=== PATIENT | female | born 1960 | race Caucasian/White ===

== ENCOUNTER 2017-09-28 13:10 | Emergency (ER) | payer MEDICARE, OTHER ==
[~2017-09-28] VITALS: Ht 172.7 cm; Wt 105.2 kg
[~2017-09-28 13:10] MED LIST: ALLEGRA ALLERG180 MG PO; ALOE VERA237 ML TOP; CALCIUM600 MG PO; CYMBALTA30 MG PO; CYMBALTA60 MG PO; INDERAL LA80 MG PO; LYRICA150 MG PO; LYRICA75 MG PO; MIRALAX119 GM PO; NORCO 5-325 TA1 EACH PO; PRAVASTATIN SOD10 MG PO; PROTONIX40 MG PO; SEROQUEL XR150 MG PO; SINEMET 25-1001 EACH PO; SYNTHROID137 MCG PO; TOPAMAX50 MG PO; VISTARIL50 MG PO; VITAMIN D5000 UNI1 PO
[2017-09-28] MEDS ORDERED: ZYRTEC10 MG PO (13:32)
[2017-09-28] MEDS ORDERED: ZITHROMAX250 MG PO (13:33)
[2017-09-28] MEDS ORDERED: MUCOSA400 MG PO (13:33)
[2017-09-28] MEDS ORDERED: BENZONATATE100 MG PO (13:33)
== END 2017-09-28 14:27 | disposition home or self-care (01) ==
LOC: ED 13:10
DX: T81.4XXA Infection following a procedure, initial encounter (principal); L02.415 Cutaneous abscess of right lower limb; I10 Essential (primary) hypertension; E03.9 Hypothyroidism, unspecified; F17.200 Nicotine dependence, unspecified, uncomplicated; Z88.8 Allergy status to other drugs, medicaments and biological substances; Z79.899 Other long term (current) drug therapy
CPT/HCPCS: 99282

== ENCOUNTER 2019-10-14 14:51 | Emergency (ER) | payer MEDICARE, OTHER ==
[~2019-10-14] VITALS: Ht 172.7 cm; Wt 103.0 kg
[~2019-10-14 14:51] MED LIST changes: +BENZONATATE100 MG PO; +MUCOSA400 MG PO; +ZITHROMAX250 MG PO; +ZYRTEC10 MG PO
--- NOTE | 2019-10-16 07:11 | PATH ---
[facility] [address] [place], [place] [address] Signed ORDERING PHYSICIAN: Jaya Lorenzana MD PATIENT NAME: SANTIAGO REBOLLEDO GENDER: Leny : 1960 SPECIMEN(S): MOLECULAR PATHOLOGY RESULTS: SARS-CoV-2 Not Detected ADDITIONAL NOTES.: The [place] Fusion SARS-CoV-2 Assay is a multiplex real-time PCR (RT-PCR) in vitro diagnostic test intended for the qualitative detection of RNA from SARS-CoV-2 from individuals who meet COVID-19 clinical and/or epidemiological criteria. In general, SARS-CoV-2 RNA can be detected during the acute phase of infection. Positive results indicate the presence of SARS-CoV-2 RNA. Clinical correlation with patient history and other diagnostic information is necessary to determine patient infection status. Positive results do not rule out bacterial infection or co-infection with other viruses. Negative results do not preclude SARS-CoV-2 infection and should not be used as the sole basis for patient management decisions. Negative results must be combined with other clinical observations, patient history, and epidemiological information. The [place] Fusion SARS-CoV-2 Assay is not yet approved or cleared by the [place] FDA. When there are no FDA-approved or cleared tests available, and other criteria are met, FDA can make tests available under an emergency access mechanism called an Emergency Use Authorization (EUA). The EUA for this test is supported by the [employer] Referee of Health and Human Service's (HHS's) declaration that circumstances exist to justify the emergency use of in vitro diagnostics for the detection and/or diagnosis of the virus that causes COVID-19. This EUA will remain in effect for the duration of the COVID-19 declaration justifying emergency of IVDs, unless it is terminated or revoked by FDA, after which the test may no longer be used. The [place] Fusion SARS-CoV-2 Assay is for use only under EUA in US laboratories certified under the Clinical Laboratory Improvement Amendments of 1988 (CLIA) to perform high complexity tests. [facility] is certified under CLIA to perform high complexity PATIENT NAME: SANTIAGO REBOLLEDO PATHOLOGY DATE OF : 62 REPORT #: [id number] PHYSICIAN: TAMMI DE PAZ PCP: JAYA LORENZANA MD REPORT IS CONFIDENTIAL AND NOT TO BE RELEASED WITHOUT AUTHORIZATION [facility] [address] [place] [id number] Signed clinical laboratory testing. PERFORMING LABORATORY.: Molecular testing was performed by [facility] [address] [place] [id number] (Technician Assistant: Pavan Huff D.O.; CLIA#: [id number]) Diagnostician: System Interface Pathologist Electronically Signed 10/16/2019 Copies: ~ PATIENT NAME: SANTIAGO REBOLLEDO PATHOLOGY DATE OF : 62 REPORT #: [id number] PHYSICIAN: TAMMI DE PAZ PCP: JAYA LORENZANA MD REPORT IS CONFIDENTIAL AND NOT TO BE RELEASED WITHOUT AUTHORIZATION
== END 2019-10-14 17:56 | disposition home or self-care (01) ==
LOC: ED 14:51
DX: R10.9 Unspecified abdominal pain (principal); I10 Essential (primary) hypertension; E03.9 Hypothyroidism, unspecified; F17.200 Nicotine dependence, unspecified, uncomplicated; Z88.7 Allergy status to serum and vaccine; Z79.899 Other long term (current) drug therapy
CPT/HCPCS: 80053; 81001; 83690; 83735; 85025; 96360; 99284-25; C9803; J7030

== ENCOUNTER 2022-07-29 13:29 | Emergency (ER) | payer MEDICARE, OTHER ==
[~2022-07-29] VITALS: Ht 172.7 cm; Wt 104.3 kg
--- NOTE | 2022-07-29 15:25 | EKG ---
[facility] [address] [place], [place] [address] Signed Normal sinus rhythm Normal ECG No previous ECGs available Confirmed by NICOLASA NIETO MD ([id number]) on 07/29/2022 3:25:27 PM Electronically Signed By: NICOLASA NIETO MD 07/29/22 1525 PATIENT NAME: SANTIAGO REBOLLEDO Electrocardiogram DATE OF : 62 PHYSICIAN: NICOLASA NIETO MD REPORT #: [id number] REPORT IS CONFIDENTIAL AND NOT TO BE RELEASED WITHOUT AUTHORIZATION
[2022-07-29] MEDS ORDERED: CYCLOBENZAPRINE10 MG PO (16:12)
[2022-07-29 16:25] VITALS: BP 131/73
== END 2022-07-29 16:26 | disposition home or self-care (01) ==
LOC: ED 13:29
DX: R07.89 Other chest pain (principal); I10 Essential (primary) hypertension; F17.200 Nicotine dependence, unspecified, uncomplicated; E03.9 Hypothyroidism, unspecified; Z88.7 Allergy status to serum and vaccine; Z88.8 Allergy status to other drugs, medicaments and biological substances; Z79.899 Other long term (current) drug therapy; Z79.890 Hormone replacement therapy; Z20.822 Contact with and (suspected) exposure to COVID-19
CPT/HCPCS: 36415; 71045; 80053; 83735; 83880; 84484; 85025; 85379; 85610; 87502; 93005; 93010; A9270; U0003

== ENCOUNTER 2022-10-22 19:20 | Emergency (ER) | payer MEDICARE, OTHER ==
[~2022-10-22] VITALS: Ht 172.7 cm; Wt 104.3 kg
[~2022-10-22 19:20] MED LIST changes: +CYCLOBENZAPRINE10 MG PO
[2022-10-22 21:48] VITALS: BP 138/74
== END 2022-10-22 21:49 | disposition home or self-care (01) ==
LOC: ED 19:20
DX: Z77.120 Contact with and (suspected) exposure to mold (toxic) (principal); I12.9 Hypertensive chronic kidney disease with stage 1 through stage 4 chronic kidney disease, or unspecified chronic kidney disease; N18.30 Chronic kidney disease, stage 3 unspecified; E03.9 Hypothyroidism, unspecified; F17.200 Nicotine dependence, unspecified, uncomplicated; Z88.7 Allergy status to serum and vaccine; Z88.8 Allergy status to other drugs, medicaments and biological substances; Z79.899 Other long term (current) drug therapy
CPT/HCPCS: 99283

== ENCOUNTER 2024-12-09 08:21 | Emergency (ER) | payer MEDICARE, OTHER ==
[~2024-12-09] VITALS: Ht 172.7 cm; Wt 80.4 kg
[2024-12-09 09:23] VITALS: BP 133/80
== END 2024-12-09 09:17 | disposition home or self-care (01) ==
LOC: ED 08:21
DX: S93.401A Sprain of unspecified ligament of right ankle, initial encounter (principal); I12.9 Hypertensive chronic kidney disease with stage 1 through stage 4 chronic kidney disease, or unspecified chronic kidney disease; N18.30 Chronic kidney disease, stage 3 unspecified; E03.9 Hypothyroidism, unspecified; F17.200 Nicotine dependence, unspecified, uncomplicated; Z88.7 Allergy status to serum and vaccine; Z88.8 Allergy status to other drugs, medicaments and biological substances; Z79.890 Hormone replacement therapy; Z79.899 Other long term (current) drug therapy; X50.1XXA Overexertion from prolonged static or awkward postures, initial encounter
CPT/HCPCS: 73610; 99283